=== PATIENT | female | born 1970 | race Caucasian/White ===

== ENCOUNTER 2020-01-29 21:47 | Observation (INO) ==
[2020-01-29] MEDS ORDERED: NITROGLYCERIN 2% OINT 1 INCH/GM PACK TOP STA (22:49)
[2020-01-29] MEDS ORDERED: MORPHINE 4 MG/1 ML VIAL IV STA (22:49)
[2020-01-29] MEDS ORDERED: ONDANSETRON 4 MG/2 ML VIAL IV STA (22:49)
[2020-01-29] MEDS ORDERED: ASPIRIN 325 MG TABLET PO STA (22:49)
[2020-01-29 23:42] LABS: Basophils # 0.1 10*3/uL (0.0-0.2); Basophils % 0.5 % (0.0-0.8); Eosinophils # 0.2 10*3/uL (0.0-0.87); Eosinophils % 1.6 % (0.00-10.9); Hematocrit 43.8 VOL% (35.7-47.0); Hemoglobin 15.3 GM/DL (12.0-16.0); Immature Granulocytes % 0.3 %; Immature Granulocytes Absolute 0.03 #; Lymphocytes # 2.9 10*3/uL (1.4-4.0); Lymphocytes % 28.7 % (21.3-54.2); Mean Corpuscular HGB Conc 34.9 GM/DL (32-36); Mean Corpuscular Volume 88.1 FL (87-102); Mean Platelet Volume 10.3 FL (9.6-12.0); Monocytes % 7.4 % (1.7-12.7); Neutrophils % 61.5 % (38.7-73.9); Platelet Count 341 T/CUMM (130-400); Red Blood Count 4.97 MC/CUMM (3.8-5.5); Red Cell Distribution Width 12.1 % (9.3-17.3)
[2020-01-30 00:01] LABS: Albumin 4.6 G/DL (3.4-5.0); Bilirubin,Total 1.4 MG/DL (0.2-1.0); Calcium 9.2 MG/DL (8.5-10.1); Osmolality,Calculated 262.5 MOS/KG (273-304); Total Protein 7.9 G/DL (6.4-8.3)
[2020-01-30] MEDS ORDERED: POTASSIUM CHLORIDE 20 MEQ TABLET PO STA (00:07)
[2020-01-30] MEDS ORDERED: GLUCAGON 1 MG VIAL IM PRN (00:32)
[2020-01-30] MEDS ORDERED: DEXTROSE 50% 25 GM/50 ML VIAL IV PRN (00:32)
[2020-01-30] MEDS ORDERED: MORPHINE 4 MG/1 ML VIAL IV PRN (00:32)
[2020-01-30] MEDS ORDERED: ONDANSETRON 4 MG/2 ML VIAL IV PRN (00:32)
[2020-01-30] MEDS ORDERED: NAPROXEN 250 MG TABLET PO PRN (00:37)
[2020-01-30] MEDS ORDERED: hydrALAZINE 20 MG/1 ML VIAL IV PRN (00:38)
[2020-01-30 04:55] LABS: Barbiturates Screen,Urine Negative (Negative); Benzodiazepines Screen,Urine Negative (Negative); Cannabinoid Screen,Urine Negative (Negative); Opiate Screen,Urine Positive (Negative); Phencyclidine Screen,Urine Negative (Negative)
[2020-01-30 07:34] LABS: Calcium 9.2 MG/DL (8.5-10.1); Osmolality,Calculated 261.7 MOS/KG (273-304); Risk Ratio 3.95; VLDL CHOLESTEROL 15.4 MG/DL
[2020-01-30] MEDS ORDERED: ENOXAPARIN 40 MG/0.4 ML SYRINGE SUBCUT SCH (08:00)
[2020-01-30] MEDS ORDERED: PANTOPRAZOLE 40 MG TABLET PO SCH (09:00)
[2020-01-30] MEDS ORDERED: MAGNESIUM SULF RIDER 2 GM in PREMIX 1 EACH IV PRN (10:06)
[2020-01-30] MEDS ORDERED: DIAZEPAM 5 MG TABLET PO ONE (10:06)
[2020-01-30] MEDS ORDERED: POTASSIUM CHLORIDE RIDER 10 MEQ in PREMIX 1 EACH IV PRN (10:06)
[2020-01-30] MEDS ORDERED: diphenhydrAMINE 25 MG/10 ML UDCUP PO ONE (10:06)
[2020-01-30] MEDS: lisinopriL 10 MG TABLET PO SCH (10:20)
[2020-01-30] MEDS ORDERED: VERAPAMIL 5 MG/2 ML VIAL ONE (10:31)
[2020-01-30] MEDS ORDERED: NITROGLYCERIN DRIP 50 MG/250 ML BOTTLE IV ONE (10:31)
[2020-01-30] MEDS ORDERED: LIDOCAINE 1% 20 ML VIAL ONE (10:31)
[2020-01-30] MEDS: SODIUM CHLORIDE 0.45% 1,000 ML IV SCH ×3 (10:38→20:14)
[2020-01-30] MEDS: ASPIRIN EC 81 MG TABLET PO SCH (10:43)
[2020-01-30] MEDS ORDERED: MIDAZOLAM 2 MG/2 ML VIAL ONE (10:58)
[2020-01-30] MEDS ORDERED: fentaNYL 100 MCG/2 ML VIAL ONE (10:58)
[2020-01-31 05:39] LABS: Basophils # 0.1 10*3/uL (0.0-0.2); Basophils % 0.7 % (0.0-0.8); Eosinophils # 0.2 10*3/uL (0.0-0.87); Eosinophils % 2.8 % (0.00-10.9); Hematocrit 40.6 VOL% (35.7-47.0); Hemoglobin 13.4 GM/DL (12.0-16.0); Immature Granulocytes % 0.3 %; Immature Granulocytes Absolute 0.02 #; Lymphocytes # 2.4 10*3/uL (1.4-4.0); Mean Corpuscular Volume 92.9 FL (87-102); Mean Platelet Volume 9.9 FL (9.6-12.0); Monocytes % 10.5 % (1.7-12.7); Neutrophils % 53.7 % (38.7-73.9); Platelet Count 299 T/CUMM (130-400); Red Blood Count 4.37 MC/CUMM (3.8-5.5); Red Cell Distribution Width 12.2 % (9.3-17.3); White Blood Count 7.5 T/CUMM (4-12)
[2020-01-31 06:12] LABS: Calcium 8.8 MG/DL (8.5-10.1)
[2020-01-31] MEDS: ASPIRIN EC 81 MG TABLET PO SCH (08:41)
[2020-01-31] MEDS: lisinopriL 10 MG TABLET PO SCH (08:41)
[2020-01-31 11:30] VITALS: BP 123/74
[2020-02-01] MEDS ORDERED: lisinopriL 20 MG TABLET PO SCH (09:00)
== END 2020-01-31 12:40 | disposition home or self-care (01) ==
LOC: N.EDINP 21:47 → N.ED 21:47 → SUATTDRO 01-30 00:32 → N.5E 01-30 07:32
PROVIDERS: ADMIT Internal Medicine; ATTEND Internal Medicine
PROC: CLCCHCL (ICD-10-PCS; 2020-01-30 10:15)

== ENCOUNTER 2020-02-02 22:07 | Inpatient (IN) ==
[2020-02-02] MEDS ORDERED: HEPARIN 5,000 UNIT/1 ML VIAL IV ONE (23:36)
[2020-02-02] MEDS ORDERED: MAGNESIUM SULF RIDER 4 GM in PREMIX 1 EACH IV PRN (23:36)
[2020-02-02] MEDS ORDERED: MAGNESIUM SULF RIDER 2 GM in PREMIX 1 EACH IV PRN (23:36)
[2020-02-03 01:57] LABS: PT Patient Result 10.9 SECS (9.8-11.9)
[2020-02-03] MEDS: SODIUM CHLORIDE 0.45% 1,000 ML IV SCH ×2 (03:47→13:50)
[2020-02-03] MEDS: HEPARIN DRIP 25,000 UNITS/500 ML PREMIX IV SCH (03:57)
[2020-02-03] MEDS ORDERED: hydrALAZINE 20 MG/1 ML VIAL IV PRN (08:41)
[2020-02-03] MEDS ORDERED: SIMETHICONE CHEW 125 MG TABLET PO PRN (08:41)
[2020-02-03] MEDS ORDERED: BISACODYL 5 MG TABLET PO PRN (08:41)
[2020-02-03] MEDS ORDERED: diphenhydrAMINE CAP 25 MG CAPSULE PO PRN (08:41)
[2020-02-03] MEDS ORDERED: ZALEPLON 5 MG CAPSULE PO PRN (08:41)
[2020-02-03] MEDS ORDERED: guaiFENesin/DM ER 600-30 MG TABLET PO PRN (08:41)
[2020-02-03] MEDS ORDERED: CALCIUM CARBONATE CHEW 500 MG TABLET PO PRN (08:41)
[2020-02-03] MEDS ORDERED: ONDANSETRON 4 MG/2 ML VIAL IV PRN (08:41)
[2020-02-03] MEDS ORDERED: LACTULOSE 20 GM/30 ML UDCUP PO PRN (08:41)
[2020-02-03] MEDS ORDERED: ALUMINUM/MAGNES/SIMETH MAX STR 30 ML UDCUP PO PRN (08:41)
[2020-02-03] MEDS ORDERED: ACETAMINOPHEN 325 MG TABLET PO PRN (08:41)
[2020-02-03] MEDS: lisinopriL 10 MG TABLET PO SCH (09:59)
[2020-02-03] MEDS: PANTOPRAZOLE 40 MG TABLET PO SCH (09:59)
[2020-02-03] MEDS: HEPARIN 5,000 UNIT/1 ML VIAL IV PRN ×2 (11:39→18:05)
[2020-02-04] MEDS: SODIUM CHLORIDE 0.45% 1,000 ML IV SCH ×2 (03:09→08:45)
[2020-02-04 06:24] LABS: Basophils # 0.1 10*3/uL (0.0-0.2); Basophils % 0.8 % (0.0-0.8); Eosinophils # 0.3 10*3/uL (0.0-0.87); Eosinophils % 4.2 % (0.00-10.9); Hematocrit 39.6 VOL% (35.7-47.0); Hemoglobin 13.4 GM/DL (12.0-16.0); Immature Granulocytes % 0.4 %; Immature Granulocytes Absolute 0.03 #; Lymphocytes # 2.7 10*3/uL (1.4-4.0); Lymphocytes % 37.3 % (21.3-54.2); Mean Corpuscular HGB Conc 33.8 GM/DL (32-36); Mean Corpuscular Volume 93.2 FL (87-102); Monocytes % 8.5 % (1.7-12.7); Neutrophils % 48.8 % (38.7-73.9); Platelet Count 295 T/CUMM (130-400); Red Blood Count 4.25 MC/CUMM (3.8-5.5); Red Cell Distribution Width 12.1 % (9.3-17.3); White Blood Count 7.3 T/CUMM (4-12)
[2020-02-04 06:57] LABS: Albumin 3.4 G/DL (3.4-5.0); Calcium 8.9 MG/DL (8.5-10.1); Osmolality,Calculated 271.8 MOS/KG (273-304); Total Protein 6.5 G/DL (6.4-8.3)
[2020-02-04] MEDS: HEPARIN 5,000 UNIT/1 ML VIAL IV PRN (07:18)
[2020-02-04] MEDS: lisinopriL 10 MG TABLET PO SCH (08:42)
[2020-02-04] MEDS: PANTOPRAZOLE 40 MG TABLET PO SCH (08:43)
[2020-02-04] MEDS ORDERED: APIXABAN 5 MG TABLET PO SCH (10:00)
[2020-02-04] MEDS: HEPARIN DRIP 25,000 UNITS/500 ML PREMIX IV SCH (12:14)
[2020-02-04 17:28] VITALS: BP 138/95
== END 2020-02-04 14:40 | disposition home or self-care (01) | DRG 300 ==
LOC: N.ED 22:07 → N.EDINP 22:07 → N.4E 02-03 03:00 → SUPCPDRO 02-03 11:10
PROVIDERS: ADMIT Internal Medicine Cardiovascular Disease; ATTEND Internal Medicine Cardiovascular Disease

== ENCOUNTER 2021-11-02 05:28 | Observation (INO) ==
[2021-11-02] MEDS ORDERED: VANCOMYCIN 1,000 MG VIAL ONE (07:10)
[2021-11-02] MEDS ORDERED: ceFAZolin 2,000 MG/50 ML DUPLEX IV ONE ×2 (07:10→08:05)
[2021-11-02] MEDS ORDERED: LACTATED RINGERS 1,000 ML IV SCH (07:30)
[2021-11-02] MEDS ORDERED: FAMOTIDINE 20 MG TABLET PO ONE (07:33)
[2021-11-02] MEDS ORDERED: VANCOMYCIN INJ 1,000 MG in SODIUM CHLORIDE 0.9% 250 ML IV ONE (08:06)
[2021-11-02] MEDS ORDERED: MIDAZOLAM 2 MG/2 ML VIAL ONE ×2 (08:32→09:39)
[2021-11-02] MEDS ORDERED: DEXMEDETOMIDINE 200 MCG/2 ML VIAL ONE (08:32)
[2021-11-02] MEDS ORDERED: ROPIVACAINE 0.5% 30 ML VIAL ONE (08:33)
[2021-11-02] MEDS ORDERED: LIDOCAINE 1% 5 ML VIAL ONE (08:33)
[2021-11-02] MEDS ORDERED: DEXAMETHASONE 4 MG/1 ML VIAL ONE (08:33)
[2021-11-02] MEDS ORDERED: PNEUMOCOCCAL VACCINE (23 VALENT) 0.5 ML VIAL IM ONE (08:43)
[2021-11-02] MEDS ORDERED: buprenorphine HCL 0.3 MG/ML VIAL ONE (09:19)
[2021-11-02] MEDS ORDERED: BUPIVACAINE SPINAL 0.75% 2 ML AMP SPINAL ONE (09:20)
[2021-11-02] MEDS ORDERED: KETAMINE 500 MG/10 ML VIAL ONE (10:01)
[2021-11-02] MEDS ORDERED: ONDANSETRON 4 MG/2 ML VIAL IV PRN ×2 (10:05→12:22)
[2021-11-02] MEDS ORDERED: diphenhydrAMINE CAP 25 MG CAPSULE PO PRN (10:05)
[2021-11-02] MEDS ORDERED: MAGNESIUM HYDROXIDE SUSP 30 ML UDCUP PO PRN (10:05)
[2021-11-02] MEDS ORDERED: MORPHINE 2 MG/1 ML SYRINGE IV PRN ×2 (10:05)
[2021-11-02] MEDS ORDERED: ZALEPLON 5 MG CAPSULE PO PRN (10:05)
[2021-11-02] MEDS ORDERED: BACITRACIN OINT 0.9 GM PACK TOP ONE (10:09)
[2021-11-02] MEDS ORDERED: TRANEXAMIC ACID 1,000 MG/10 ML VIAL ONE (10:35)
[2021-11-02] MEDS ORDERED: SODIUM CHLORIDE 0.9% 250 ML IV ONE (11:08)
[2021-11-02] MEDS ORDERED: LIDOCAINE 2% 5 ML VIAL ONE ×2 (11:08)
[2021-11-02] MEDS ORDERED: propofoL 200 MG/20 ML VIAL IV ONE (11:08)
[2021-11-02] MEDS ORDERED: ONDANSETRON 4 MG/2 ML VIAL ONE (11:31)
[2021-11-02] MEDS ORDERED: HYDROmorphone 1 MG/1 ML SYRINGE IV PRN (12:22)
[2021-11-02] MEDS: KETOROLAC 30 MG/1 ML VIAL IV SCH ×3 (15:42→22:40)
[2021-11-02] MEDS: LACTATED RINGERS 1,000 ML IV SCH ×2 (17:52→19:54)
[2021-11-02] MEDS: ceFAZolin 2,000 MG/50 ML DUPLEX IV SCH (17:53)
[2021-11-02] MEDS: APIXABAN 2.5 MG TABLET PO SCH (20:53)
[2021-11-02] MEDS: DOCUSATE SODIUM 100 MG CAPSULE PO SCH (20:53)
[2021-11-02] MEDS: amLODIPine 10 MG TABLET PO SCH (20:53)
[2021-11-03] MEDS: ceFAZolin 2,000 MG/50 ML DUPLEX IV SCH (01:11)
[2021-11-03] MEDS: LACTATED RINGERS 1,000 ML IV SCH (03:40)
[2021-11-03] MEDS: KETOROLAC 30 MG/1 ML VIAL IV SCH (04:04)
[2021-11-03] MEDS ORDERED: FONDAPARINUX 2.5 MG/0.5 ML SYRINGE SUBCUT SCH (04:30)
[2021-11-03 05:29] LABS: Basophils % 0.1 % (0.0-0.8); Hematocrit 36.4 VOL% (35.7-47.0); Hemoglobin 12.1 GM/DL (12.0-16.0); Immature Granulocytes % 0.5 %; Immature Granulocytes Absolute 0.07 #; Lymphocytes # 1.3 10*3/uL (1.4-4.0); Lymphocytes % 9.6 % (21.3-54.2); Mean Corpuscular HGB Conc 33.2 GM/DL (32-36); Mean Corpuscular Volume 93.1 FL (87-102); Mean Platelet Volume 10.3 FL (9.6-12.0); Monocytes # 0.9 10*3/uL (0.11-0.8); Monocytes % 6.6 % (1.7-12.7); Neutrophils % 83.2 % (38.7-73.9); Platelet Count 314 T/CUMM (130-400); Red Blood Count 3.91 MC/CUMM (3.8-5.5)
[2021-11-03 05:47] LABS: Calcium 8.9 MG/DL (8.5-10.1); Potassium 3.9 MMOL/L (3.5-5.1)
[2021-11-03] MEDS: APIXABAN 2.5 MG TABLET PO SCH ×2 (09:04→20:32)
[2021-11-03] MEDS: lisinopriL 20 MG TABLET PO SCH (09:05)
[2021-11-03] MEDS: DOCUSATE SODIUM 100 MG CAPSULE PO SCH ×2 (09:05→20:32)
[2021-11-03] MEDS: amLODIPine 10 MG TABLET PO SCH (20:32)
[2021-11-04 04:55] LABS: Basophils % 0.4 % (0.0-0.8); Eosinophils # 0.3 10*3/uL (0.0-0.87); Eosinophils % 2.6 % (0.00-10.9); Hematocrit 34.2 VOL% (35.7-47.0); Hemoglobin 11.4 GM/DL (12.0-16.0); Immature Granulocytes % 0.4 %; Immature Granulocytes Absolute 0.04 #; Lymphocytes # 2.6 10*3/uL (1.4-4.0); Lymphocytes % 25.8 % (21.3-54.2); Mean Corpuscular HGB Conc 33.3 GM/DL (32-36); Mean Corpuscular Volume 92.9 FL (87-102); Mean Platelet Volume 10.3 FL (9.6-12.0); Monocytes # 0.9 10*3/uL (0.11-0.8); Monocytes % 8.6 % (1.7-12.7); Neutrophils % 62.2 % (38.7-73.9); Platelet Count 282 T/CUMM (130-400); Red Blood Count 3.68 MC/CUMM (3.8-5.5); Red Cell Distribution Width 12.1 % (9.3-17.3); White Blood Count 10.2 T/CUMM (4-12)
[2021-11-04] MEDS: DOCUSATE SODIUM 100 MG CAPSULE PO SCH (08:22)
[2021-11-04] MEDS: APIXABAN 2.5 MG TABLET PO SCH (08:22)
[2021-11-04] MEDS: lisinopriL 20 MG TABLET PO SCH (08:22)
[2021-11-04 12:08] VITALS: BP 144/74
[2021-11-04] MEDS ORDERED: PNEUMOCOCCAL VACCINE (23 VALENT) 0.5 ML VIAL IM ONE (12:30)
== END 2021-11-04 14:17 | disposition swing bed (61) ==
LOC: N.3E 05:28 → N.SDSINP 05:28 → N.OR 05:28 → N.SDSINP 05:30 → N.3E 15:16
PROVIDERS: ADMIT Orthopaedic Surgery; ATTEND Orthopaedic Surgery